=== PATIENT | male | born 1950 | race Caucasian/White ===

== ENCOUNTER → 2016-07-30 | Day surgery (SDC) | payer BC ==
[~2016-07-30] MED LIST: LACTATED RINGER'S 1000 ML INJ 1,000 ML ONE; LORTA5 PO; PRIN20TA2 PO; PROPOFOL 500 MG/50 ML BTL IV ONE
--- NOTE | 2016-07-30 08:27 | GIPROC ---
[facility] [address] [facility], [address] COLONOSCOPY PROCEDURE REPORT EXAM DATE: 07/30/2016 PATIENT NAME: Raymond Leblanc V MR #: [id number] BIRTHDATE: 1950 ENDOSCOPIST: Kandy Shen MD ORDER #: [id number] MAILMASTER: Jyoti Okeefe RN and Yamilet Chowdhury [employer]PERATOR STATUS: outpatient INDICATIONS: The patient is a 65 yr old male here for a colonoscopy due to patient's immediate family history of colon cancer and high risk patient with personal history of colonic polyps PROCEDURE PERFORMED: Colonoscopy with polypectomy MEDICATIONS: None and Per Anesthesia. PREP QUALITY: good ESTIMATED BLOOD LOSS: None CONSENT: The patient understands the risks and benefits of the procedure and understands that these risks include, but are not limited to: sedation, allergic reaction, infection, perforation and/or bleeding. Alternative means of evaluation and treatment include, among others: physical exam, x-rays, and/or surgical intervention. The patient elects to proceed with this endoscopic procedure. medical equipment was checked for proper function. Hand hygiene and appropriate measures for infection prevention was taken. After the risks, benefits and alternatives of the procedure were thoroughly explained, Informed consent was verified, confirmed and timeout was successfully executed by the treatment team. A digital exam revealed external hemorrhoids The EC-[id number] ([id number] endoscope was introduced through the anus and advanced to the cecum, which was identified by both the appendix and ileocecal valve. The instrument was then slowly withdrawn as the colon was fully examined. COLON FINDINGS: Diverticulosis sigmoid,descending polyp sessile asccending colon-6 mm-hot snare polypectomy with complete removal. Retroflexed views revealed internal hemorrhoids and Retroflexed views revealed medium internal hemorrhoids The scope was then completely withdrawn from the patient and the procedure terminated. PROCEDURE WITHDRAWAL TIME:6minutes ADVERSE EVENTS: There were no complications. IMPRESSIONS: 1. Diverticulosis sigmoid,descending polyp sessile asccending colon-6 mm-hot snare polypectomy with complete removal 2. Retroflexed views revealed internal hemorrhoids 3. Retroflexed views revealed medium internal hemorrhoids 4. Revealed external hemorrhoids RECOMMENDATIONS: 1. Await biopsy results. Biopsy results will not be ready for 7-10 days. If you don't hear from us in two weeks, call our office for results. 2. Benefiber 2 tsp daily 3. High fiber diet 4. Probiotics from any [facility] or health food store 5. Yearly rectal exams RECALL: Colonoscopy, pending biopsy results Kandy Shen MD eSigned: Kandy Shen MD 07/30/2016 8:27 AM cc: Maira Romero [facility] Neri and Rosa Rowe M.D. PATIENT NAME: Raymond Leblanc V MR#: [id number]
== END | disposition home or self-care (01) ==
LOC: ESDC 07:03
PROVIDERS: ATTEND Internal Medicine Gastroenterology
DX: Z12.11 Encounter for screening for malignant neoplasm of colon (principal); Z86.010 Personal history of colon polyps; Z80.0 Family history of malignant neoplasm of digestive organs; K57.30 Diverticulosis of large intestine without perforation or abscess without bleeding; D12.2 Benign neoplasm of ascending colon; K64.8 Other hemorrhoids
CPT/HCPCS: 00810; 45385; 88305; J7120